=== PATIENT | female | born 2005 | race Caucasian/White ===

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

== ENCOUNTER → 2025-04-16 | Outpatient (REF) | payer MEDICAID, OTHER ==
[~2025-04-16] MED LIST changes: +BENZ1LOZ9 PO; +CLAR10TA7 PO; +CLONI1TA PO; +CLOT1CRE56 TOP; +THERTAB19 PO
== END ==
LOC: M LAB REF 17:04
PROVIDERS: ATTEND Nurse Practitioner Family
DX: R30.0 Dysuria (principal); N89.8 Other specified noninflammatory disorders of vagina